=== PATIENT | male | born 1990 | race Hispanic/Latino ===

== ENCOUNTER 2020-03-04 10:30 | Emergency (ER) | payer OTHER ==
[~2020-03-04] VITALS: Ht 165.1 cm; Wt 59.1 kg
[2020-03-04] MEDS ORDERED: TYLENOL 8 HOUR650 MG PO (10:46)
[2020-03-04] MEDS ORDERED: CYCLOBENZAPR5 MG PO (10:52)
[2020-03-04 11:27] VITALS: BP 95/54
== END 2020-03-04 11:45 | disposition home or self-care (01) | DRG 552 ==
LOC: ED 10:30
DX: M54.5 Low back pain (principal); X50.0XXA Overexertion from strenuous movement or load, initial encounter; Y93.I9 Activity, other involving external motion; Y92.73 Farm field as the place of occurrence of the external cause; Y99.0 Civilian activity done for income or pay